=== PATIENT | female | born 1980 | race American Indian/Alaskan Native ===

== ENCOUNTER 2017-09-12 10:47 | Outpatient (CLI) | payer BC ==
--- NOTE | 2017-09-12 11:34 | Ultrasound Report ---
Bilateral mammogram and left breast ultrasound: Patient presents with a history of 9 months of clear discharge and she compresses her breast. Routine mammographic images demonstrate a heterogeneously dense and generally symmetric fibroglandular pattern. No evidence of ductal dilatation, mass, architectural distortion, or calcification noted. Retroareolar imaging of the left breast is unremarkable with no evidence of ductal abnormality identified. CAD used. Impression: Normal mammogram and targeted left breast ultrasound. Recommendation: Clinical followup. Any additional evaluation at this time should be based on your concern. Otherwise, age-appropriate mammogram followup. BI-RADS CATEGORY: 1 = Negative ACR BI-RADS MAMMOGRAPHIC CODES: 0 = Needs additional imaging evaluation; 1 = Negative; 2 = Benign; 3 = Probably benign; 4 = Suspicious; 5 = Malignant; 6 = Known biopsy-proven malignancy COMMENT: 1. Dense breast tissue, i.e., adenosis, fibrocystic changes, etc., may obscure an underlying neoplasm. 2. Approximately 10% of cancers are not detected with mammography. 3. A negative mammography report should not delay biopsy if a clinically suspicious mass is present.
== END 2017-09-12 10:48 | disposition home or self-care (01) ==
LOC: SPVWC 10:47
PROVIDERS: ATTEND Obstetrics & Gynecology
DX: N64.4 Mastodynia (principal); N64.52 Nipple discharge
CPT/HCPCS: 77066